=== PATIENT | female | born 1940 | race Caucasian/White ===

== ENCOUNTER 2022-12-02 11:41 | Outpatient (CLI) | payer MEDICARE | END 2022-12-02 11:42 | disposition home or self-care (01) | LOC: CSHCT 11:41 | PROVIDERS: ATTEND Otolaryngology | DX: R06.89 Other abnormalities of breathing (principal); J38.6 Stenosis of larynx; R91.8 Other nonspecific abnormal finding of lung field | CPT/HCPCS: 71250 ==